=== PATIENT | female | born 1985 | race Caucasian/White ===

== ENCOUNTER → 2017-10-03 | Outpatient (CLI) | payer MEDICAID ==
--- NOTE | 2017-10-03 11:46 | CPEKG ---
Heart Rate: 49 RR Interval: 1224 P-R Interval: 136 QRSD Interval: 90 QT Interval: 436 QTC Interval: 394 P [place]: 50 QRS [place]: 47 T Wave [place]: 40 EKG Severity - ABNORMAL ECG - EKG Impression: SINUS BRADYCARDIA Electronically Signed By: Earnest Mcleod 04-Oct-2017 10:38:03
== END ==
LOC: FCP 11:32
PROVIDERS: ATTEND Psychiatry & Neurology Psychiatry
DX: R94.31 Abnormal electrocardiogram [ECG] [EKG] (principal)

== ENCOUNTER 2018-06-27 14:24 | Day surgery (SDC) | payer MEDICAID ==
--- NOTE | 2018-06-27 10:55 | PDHPUP ---
History & Physical Update H&P update statement: This history and physical update is based on an assessment of the patient which was completed after admission or registration (within 24 hours), but prior to the surgery/procedure. H&P update: H&P reviewed & patient examined, no change in patient's condition since H&P completed
[2018-06-27] MEDS ORDERED: BUPIVACAINE 0.25% 30 ML SDV ONE (14:43)
[2018-06-27] MEDS ORDERED: LR 1,000 ML IV ONE (14:56)
[2018-06-27] MEDS ORDERED: DIAZEPAM 5 MG/ML 1 ML SYR ONE (16:07)
[2018-06-27] MEDS ORDERED: DIAZEPAM 5 MG/ML 1 ML SYR IVP ONE (16:30)
[2018-06-27] MEDS ORDERED: MIDAZOLAM 2 MG/2 ML VIAL ONE (17:02)
[2018-06-27] MEDS ORDERED: MIDAZOLAM 2 MG/2 ML VIAL IVP ONE (17:02)
--- NOTE | 2018-06-27 17:03 | POSTOPPROG ---
Post Op Note Date of Operation: 06/27/18 Surgeon: Earnest Prado [employer] Consultant: Maribeth Jaime Anesthesiologist: Markus Arcos Anesthesia: GET(General Endotracheal) Pre-op Diagnosis: need for venous access Post-op Diagnosis: same Indication: 32 Y F c chronic depression, poor veins, and need for access for ECT. Procedure: power port placement c flouro Findings: good position and flow Inf/Abcess present in the surg proc area at time of surgery?: No EBL: Minimal Complications: none
--- NOTE | 2018-06-27 17:03 | PDANEPAE ---
ANE History of Present Illness port ANE Past Medical History - Cardiovascular History Hx Hypertension: No Hx Arrhythmias: No Hx Chest Pain: No Hx Coronary Artery / Peripheral Vascular Disease: No Hx CHF / Valvular Disease: No Hx Palpitations: No Cardiovascular History Comment: bradycardic - Pulmonary History Hx COPD: No Hx Asthma/Reactive Airway Disease: No Hx Recent Upper Respiratory Infection: No Hx Oxygen in Use at Home: No Hx Sleep Apnea: No Sleep Apnea Screening Result - Last Documented: Negative Pulmonary History Comment: smoker - Neurologic History Hx Cerebrovascular Accident: No Hx Seizures: No Hx Dementia: No - Endocrine History Hx Diabetes: No Hypothyroid: No Hyperthyroid: No - Renal History Hx Renal Disorders: No - Liver History Hx Hepatic Disorders: No - Neurological & Psychiatric Hx Hx Neurological and Psychiatric Disorders: Yes Neurological / Psychiatric History Comment: migraines with aura severe vertico - Cancer History Hx Cancer: No - Congenital Disorder History Hx Congenital Disorders: No - GI History Hx Gastrointestinal Disorders: Yes Gastrointestinal History Comment: IBS with constipation - Other Health History Other Health History: none - Chronic Pain History Chronic Pain: No - Surgical History Prior Surgeries: lap band placement. ECT 3 x a week ANE Review of Systems Review of Systems: - Exercise capacity METS (RN): 4 METS ANE Patient History - Allergies Allergies/Adverse Reactions: ciprofloxacin [From Cipro] Allergy (Verified 06/26/18 11:14) Hives clindamycin Allergy (Verified 06/26/18 11:14) Hives levofloxacin [From Levaquin] Allergy (Verified 06/26/18 11:14) Hives Penicillins Allergy (Verified 06/26/18 11:14) Hives - Home Medications Home medications: home medication list seen and reviewed Home Medications: Acetazolamide 06/26/18 [Last Taken 06/26/18] Cryselle-28 Tablet 06/26/18 [Last Taken Unknown] Trazodone HCl 06/26/18 [Last Taken 06/26/18] Zofran Odt 06/26/18 [Last Taken 06/26/18] - NPO status NPO Status: no food or drink >8 hours NPO Since - Liquids (Date): 06/27/18 NPO Since - Liquids (Time): 07:00 NPO Since - Solids (Date): 06/27/18 NPO Since - Solids (Time): 07:00 - Anes Hx Anes Hx: no prior problems - Smoking Hx Smoking Status: Heavy smoker - Family Anes Hx Family Hx Anesthesia Complications: none ANE Labs/Vital Signs - Vital Signs Blood Pressure: 118/69 Heart Rate: 53 Respiratory Rate: 16 O2 Sat (%): 95 Height: 172.72 cm Weight: 90.718 kg ANE Physical Exam - Airway Mallampati Score: Class 2 Mouth exam: normal dental/mouth exam - Pulmonary Pulmonary: no respiratory distress - Cardiovascular Cardiovascular: regular rate and rhythym - ASA Status ASA Status: II ANE Anesthesia Plan Anesthesia Plan: GA w LMA
[2018-06-27] MEDS ORDERED: PROPOFOL 200 MG/20 ML VIAL ONE (17:11)
[2018-06-27] MEDS ORDERED: LIDOCAINE 2% 5 ML SDV ONE (17:11)
[2018-06-27] MEDS ORDERED: fentaNYL 100 MCG/2 ML INJ ONE (17:11)
[2018-06-27] MEDS ORDERED: KETOROLAC 30 MG/1 ML SDV ONE (17:12)
[2018-06-27] MEDS ORDERED: ONDANSETRON 4 MG/2 ML VIAL ONE (17:12)
[2018-06-27] MEDS ORDERED: DEXAMETHASONE 4 MG/ML VIAL ONE (17:12)
[2018-06-27] MEDS ORDERED: NALOXONE HCL 0.4 MG/ML INJ IVP PRN (18:25)
[2018-06-27] MEDS ORDERED: ONDANSETRON 4 MG/2 ML VIAL IVP PRN (18:25)
[2018-06-27] MEDS ORDERED: oxyCODONE IR 5 MG TAB PO PRN (18:25)
[2018-06-27] MEDS ORDERED: HYDROCODONE/APAP 5/325 TAB PO PRN (18:25)
[2018-06-27] MEDS ORDERED: fentaNYL 100 MCG/2 ML INJ IVP PRN (18:25)
[2018-06-27] MEDS ORDERED: LR 500 ML IV PRN (18:25)
[2018-06-27] MEDS ORDERED: DIAZEPAM 5 MG/ML 1 ML SYR IVP PRN (18:25)
[2018-06-27] MEDS ORDERED: ALBUTEROL 3 ML DEYVIAL IH PRN (18:25)
--- NOTE | 2018-06-27 18:26 | POSTANESTH ---
Post Anesthetic Evaluation Cardiovascular Status: Normal, Stable Respiratory Status: Normal, Stable Level of Consciousness/Mental Status: Can Participate in Eval Pain Control: Adequate, Prn Tx Ordered Nausea/Vomiting Control: Adequate, Prn Tx Ordered Complications Possibly Related to Anesthesia: None Noted
[2018-06-27] MEDS ORDERED: HYDROCODONE/APAP 5/325 TAB ONE (19:04)
[2018-06-27 20:02] VITALS: BP 148/83
--- NOTE | 2018-07-01 20:21 | GOP ---
[f rep st] OPERATIVE REPORT DATE OF OPERATION: 06/27/2018 SURGEON: Earnest Prado MD PREOPERATIVE DIAGNOSIS: Depression. POSTOPERATIVE DIAGNOSIS: Depression. PROCEDURE PERFORMED: Left subclavian port placement for venous access. FINDINGS: Patient was found to have good position and flow of the catheter. DESCRIPTION OF PROCEDURE: Patient was taken to the operating room, where she received a satisfactory general endotracheal anesthesia by Dr. Hinton; placed in supine position, prepped and draped in usua l sterile fashion. She was then placed in Trendelenburg. A single stick was made in the left subcla vian vein. A guidewire was introduced under fluoroscopic guidance. However, the guidewire crossed t he midline and went out the right arm for some distance. Then, under active fluoro, the guidewire co uld be eventually redirected down into the right atrium. A subcu pocket was made in the lateral ches t wall in the infraclavicular area, in location that the patient requested. A subcu pocket was creat ed. Port tubing was passed from that pocket to the subclavian insertion site. The catheter was trim med to the appropriate length using fluoroscopic guidance. It was then introduced into the right atr ium through the introducer sheath and dilator system. We, again, had a similar problem with the cath eter going out the arm, but eventually we were able to get it positioned back down into the right atr ium. Good backflow was achieved. The catheter was flushed with heparin and saline. The port was se cured to the fascia with 3-0 Vicryl sutures and the pocket was closed with 3-0 Vicryl for the subcu, 4-0 Prolene subcuticular stitch for the skin. The entrance site was closed with Prolene mattress sut ure. Wounds were all infiltrated with 0.5% Marcaine. She tolerated the procedure well. There were no complications. Blood loss was negligible. Taken to the recovery room in good condition. Copy requested to: GEETA Painter /[id number]/MODL
== END 2018-06-27 20:25 | disposition home or self-care (01) ==
LOC: MERGE 14:24 → FSGY 14:24
PROVIDERS: ATTEND Surgery
DX: F32.9 Major depressive disorder, single episode, unspecified (principal)
CPT/HCPCS: C1788; J1100; J1642; J1885; J2250; J2405; J2704; J3010; J3360

== ENCOUNTER → 2018-11-20 | Outpatient (CLI) | payer MEDICAID | LOC: FIMAGING 09:53 | DX: I82.492 Acute embolism and thrombosis of other specified deep vein of left lower extremity (principal) ==